=== PATIENT | female | born 2000 | race Caucasian/White ===

== ENCOUNTER 2019-02-20 16:40 | Emergency (ER) | payer BC ==
[~2019-02-20] VITALS: Ht 170.2 cm; Wt 58.1 kg
[2019-02-20 16:47] VITALS: TEMP 98.8
[2019-02-20] MEDS ORDERED: SPRINTEC 35 MCG1 TAB PO (17:19)
[2019-02-20] MEDS ORDERED: ZOFRAN ODT4 MG PO (18:24)
[2019-02-20 18:47] VITALS: BP 107/69; PULSE 71
== END 2019-02-20 18:48 | disposition home or self-care (01) ==
LOC: COL.ER 16:40
DX: F07.81 Postconcussional syndrome (principal); W06.XXXA Fall from bed, initial encounter; Y92.163 Bedroom in school dormitory as the place of occurrence of the external cause